=== PATIENT | male | born 2000 | race Hispanic/Latino ===

== ENCOUNTER 2022-05-10 22:23 | Emergency (ER) | payer SELFPAY ==
--- NOTE | ~2022-05-10 | US_ITS ---
Testicular ultrasound with doppler. Indication: Pain. Technique: Real-time sonography the scrotum was performed. Color flow Doppler and Doppler spectral an alysis were performed. Findings: The testes are homogeneous in echotexture bilaterally. There is no evidence of an intrates ticular mass. The right testis measures 4.7 x 1.8 x 2.9 cm and the left 4.2 x 1.9 x 2.4 cm. There is color-flow seen to both testes. Arterial and venous spectral waveforms are seen in both testes. There is no sonographic evidence of torsion. The head of the epididymis is visualized bilaterally and is within normal limits. Impression: Unremarkable exam. No evidence of torsion. Reviewed, dictated and finalized at location . HASING ADMINISTRATOR Impression: Unremarkable exam. No evidence of torsion.
[2022-05-10 22:25] VITALS: BP 139/80; PULSE 70; RESP 15; TEMP 36.6; O2SAT 98
[2022-05-10 23:24] LABS: Appearance Urine Clear (Clear); Bilirubin Urine Negative (Negative); Blood Urine Negative (Negative); Glucose Urine UA Negative (Negative); Ketones Urine Negative (Negative); Leukocyte Esterase Ur Negative LEU/UL (Negative); Nitrate Urine Negative (Negative); Protein Urine Negative (Negative); Urobilinogen Urine 0.2 mg/dL (<2.0); pH Urine 6.5 (5.0-9.0)
[2022-05-10 23:31] LABS: Bacteria Urine Trace /hpf; Mucus Urine Rare /lpf; WBC Urine 0-3 /hpf
[2022-05-10 23:59] LABS: Add Urine Microscopic? NO; Color Urine Light Yellow (Yellow)
--- NOTE | 2022-05-11 01:02 | ED.MALEGU ---
HPI - Male Genitourinary General Chief complaint: Urogenital-Male Stated complaint: testicle pain Time Seen by Provider: 05/10/22 22:33 History of Present Illness HPI Narrative: Patient is a 22-year-old male who presents ER with right testicular pain. Reports intermittent over the last couple weeks since moving here from [facility]. Reports is worse today. His pants and make certain movements. He is concerned he may have testicular torsion. He had testicular torsion a couple months ago and required surgical repair while in [place]. No urinary frequency urgency or dysuria. Denies concern for sexually transmitted infection. Denies any additional trauma. Related Data Allergies Allergy/AdvReac Type Severity Reaction Status Date / Time hydroxyzine Allergy Mild Vomiting Verified 05/10/22 22:29 Review of Systems Constitutional: Constitutional: Denies chills and Denies fever(s) Gastrointestinal: Gastrointestinal: Denies abdominal pain, Denies nausea and Denies vomiting Genitourinary: Genitourinary: Denies hematuria, Denies dysuria, Reports testicular pain and Denies urinary frequency PMFSH Past Medical History Medical History (Updated 05/11/22 @ 01:21 by James Marin MD) Healthy adult male Testicular torsion Surgical History Surgical History (Updated 05/11/22 @ 01:21 by James Marin MD) S/P orchiopexy Exam Narrative: GENERAL: Well-appearing, well-nourished, and in no acute distress. HEAD: Normocephalic, atraumatic. CHEST: Clear to auscultation. No respiratory distress. HEART: Regular rate and rhythm. Normal peripheral pulses. : Normal external genitalia. Mild tenderness to the right testicle and not left. No epididymal tenderness bilaterally. No inguinal hernia. EXTREMITIES: Normal range of motion. No edema. SKIN: Warm, dry, no rash. NEURO: Alert and oriented x3. PSYCH: Poor eye contact with flat affect but answers questions appropriately. Course Course Emergency Course: No evidence of testicular torsion or infection. Recommend follow-up with urology if continued discomfort. Discussed treatment plan and patient verbalized understanding. Vital Signs Vital signs: Vital Signs Temperature 97.9 F 05/10/22 22:25 Pulse Rate 70 05/10/22 22:25 Respiratory Rate 15 05/10/22 22:25 Blood Pressure 139/80 05/10/22 22:25 Pulse Oximetry 98 01/18/23 22:25 Oxygen Delivery Room Air 05/10/22 22:25 Temperature 97.9 F 05/10/22 22:25 Pulse Rate 70 05/10/22 22:25 Respiratory Rate 15 05/10/22 22:25 Blood Pressure 139/80 05/10/22 22:25 Pulse Oximetry 98 05/10/22 22:25 Oxygen Delivery Room Air 05/10/22 22:25 MDM - Male Genitourinary Lab Data Labs: Lab Results 05/10/22 Range/Units 23:18 Urine Color Light yellow (Yellow) Urine Appearance Clear (Clear) Urine pH 6.5 (5.0-9.0) Ur Specific [place] 1.020 (1.001-1.035) Urine Protein Negative (Negative) mg/dL Urine Glucose (UA) Negative (Negative) mg/dL Urine Ketones Negative (Negative) mg/dL Ur Blood (Man) Negative (Negative) Urine Nitrate Negative (Negative) Urine Bilirubin Negative (Negative) Urine Urobilinogen 0.2 (<2.0) mg/dL Leukocyte Esterase Rfl Negative (Negative) YA/UL Urine WBC 0-3 /hpf Urine Bacteria Trace /hpf Urine Mucus Rare /lpf Imaging Data Radiologist's impression: Ultrasound scrotal: No evidence of testicular torsion at this time. There is 2 mm left epididymal cyst. Discharge Plan Discharge Clinical Impression: Pain in testicle Patient Disposition: Home, Self-Care Condition: Stable Instructions: Testicle Pain (ED) Additional Instructions: We recommend wearing fitting underwear to help prevent movement of your testicles. Take ibuprofen for pain. Return to the ER if you cannot urinate, you have worsening pain, or have other concerns. Prescriptions: New ibuprofen 600 mg tablet 600 mg PO TID Qty: 20 0RF F
[2022-05-11 02:12] VITALS: BP 117/80; PULSE 74; RESP 14; O2SAT 98
== END 2022-05-11 02:15 | disposition home or self-care (01) ==
PROVIDERS: Emergency Provider Emergency Medicine; PCP Emergency Medicine
DX: N50.811 Right testicular pain (principal)
CPT/HCPCS: 76870; 81003; 93976; 99284